=== PATIENT | male | born 1980 | race African-American/Black ===

== ENCOUNTER 2018-04-07 05:14 | Emergency (ER) | payer OTHER ==
[2018-04-07] MEDS ORDERED: Adacel (T-DAP) 0.5 ML SYRINGE ONE (05:35)
[2018-04-07] MEDS ORDERED: Ibuprofen 800 MG TAB ONE (05:40)
[2018-04-07] MEDS ORDERED: Rabies Vaccine Human 2.5 UNITS VIAL IM ONE (06:00)
== END 2018-04-07 06:50 | disposition home or self-care (01) ==
LOC: ERS 05:14
DX: S61.451A Open bite of right hand, initial encounter (principal); S61.411A Laceration without foreign body of right hand, initial encounter; S61.431A Puncture wound without foreign body of right hand, initial encounter; I10 Essential (primary) hypertension; F17.210 Nicotine dependence, cigarettes, uncomplicated; Z23 Encounter for immunization; W54.0XXA Bitten by dog, initial encounter
CPT/HCPCS: 90375; 90471; 90472; 90675; 90715; 96372

== ENCOUNTER 2018-10-12 13:11 | Outpatient (CLI) | payer OTHER ==
--- NOTE | 2018-10-12 14:05 | RAD ---
EXAM: RIGHT HIP TWO VIEWS: 10/12/18 HISTORY: Right hip pain. COMPARISON: 05/17/13. FINDINGS: Stable internal fixation of the right hip and femur. 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 No acute fracture or dislocation. IMPRESSION: Stable appearing right hip with extensive internal fixation changes extending into the distal femoral shaft. Arthrosis and degenerative change. No acute fracture or other significant change from prior s tudy. POS: OFF
== END 2018-10-12 13:12 | disposition home or self-care (01) ==
LOC: RAD-FRANK 13:11
PROVIDERS: ATTEND Internal Medicine
DX: M25.551 Pain in right hip (principal); M16.11 Unilateral primary osteoarthritis, right hip; Z98.890 Other specified postprocedural states

== ENCOUNTER 2019-02-28 08:59 | Emergency (ER) | payer OTHER ==
[2019-02-28] MEDS ORDERED: Ketorolac Tromethamine 30 MG/ML VIAL ONE (09:23)
== END 2019-02-28 09:38 | disposition home or self-care (01) ==
LOC: ERS 08:59
DX: M25.511 Pain in right shoulder (principal); I10 Essential (primary) hypertension; F17.210 Nicotine dependence, cigarettes, uncomplicated
CPT/HCPCS: J1885

== ENCOUNTER 2019-06-04 22:36 | Emergency (ER) | payer OTHER ==
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
[2019-06-04 23:59] LABS: #Lymphocytes 0.6 thou/uL (1.20-3.40); #Monocytes 0.5 thou/uL (0.11-0.59); #Neutrophils 10.5 thou/uL (1.40-6.50); %Basophils 0.3 % (0.0-1.0); %Eosinophils 0.2 % (0.0-10.0); %Lymphocytes 5.2 % (21.0-51.0); %Monocytes 3.9 % (0.0-10.0); %Neutrophils 90.5 % (42.0-75.0); Hemoglobin 14.9 g/dL (14.0-18.0); Mean Corpuscular HGB CONC 33.8 g/dL (32.0-36.0); Mean Corpuscular Hemoglobin 34.1 pg (27.0-31.0); Mean Platelet Volume 8.3 fL (7.4-10.4); Platelet Count 140 thou/uL (130-400); RBC Distribution Width 13.2 % (11.5-14.5); Red Blood Cell (RBC) Count 4.37 mill/uL (4.70-6.10); White Blood Cell (WBC) Count 11.6 thou/uL (4.8-10.8)
[2019-06-05 00:50] LABS: Acetaminophen Less than 6.0 mcg/mL (10.0-30.0); Alcohol Less than 10 mg/dL (Less than 10); CK (CPK) 678 U/L (30-200); Salicylate Less than 8.0 mg/dL (15.0-30.0)
[2019-06-05 00:53] LABS: ALT (SGPT) 93 U/L (8-55); AST (SGOT) 85 U/L (5-34); Albumin 4.8 g/dL (3.5-5.0); Alkaline Phosphatase 101 U/L (40-110); Anion Gap 22 mmol/L (10-20); BUN (Urea Nitrogen) 14 mg/dL (8.9-20.6); Bilirubin, Total 0.9 mg/dL (0.2-1.2); Calc. Creatinine Clearance 0 mL/min (70-130); Calcium 10.4 mg/dL (7.8-10.44); Carbon Dioxide 22 mmol/L (22-29); Chloride 98 mmol/L (98-107); Estimated GFR-MDRD Greater than 90; Globulin 4.2 g/dL (2.4-3.5); Glucose 129 mg/dL (70-105); Potassium 4.2 mmol/L (3.5-5.1); Sodium 138 mmol/L (136-145)
[2019-06-05] MEDS ORDERED: Ketorolac Tromethamine 30 MG/ML VIAL ONE (04:24)
[2019-06-05] MEDS ORDERED: Ondansetron PF 4 MG/2 ML Vial ONE (04:24)
== END 2019-06-05 04:35 | disposition home or self-care (01) ==
LOC: ERS 22:36
DX: R56.9 Unspecified convulsions (principal); F17.210 Nicotine dependence, cigarettes, uncomplicated; I10 Essential (primary) hypertension
CPT/HCPCS: 36415; 70450; 80053; 80307; 82550; 84484; 85025; 93005; 96361; 96374; 96375; J1885; J2405

== ENCOUNTER 2019-08-28 16:59 | Emergency (ER) | payer OTHER ==
[2019-08-28 17:30] LABS: #Lymphocytes 1.8 thou/uL (1.20-3.40); #Monocytes 0.7 thou/uL (0.11-0.59); #Neutrophils 5.7 thou/uL (1.40-6.50); %Basophils 0.4 % (0.0-1.0); %Eosinophils 0.1 % (0.0-10.0); %Lymphocytes 21.9 % (21.0-51.0); %Neutrophils 69.6 % (42.0-75.0); Hemoglobin 14.4 g/dL (14.0-18.0); Mean Corpuscular HGB CONC 33.2 g/dL (32.0-36.0); Mean Corpuscular Hemoglobin 34.1 pg (27.0-31.0); Mean Platelet Volume 8.2 fL (7.4-10.4); Platelet Count 184 thou/uL (130-400); RBC Distribution Width 13.1 % (11.5-14.5); Red Blood Cell (RBC) Count 4.22 mill/uL (4.70-6.10); White Blood Cell (WBC) Count 8.1 thou/uL (4.8-10.8)
[2019-08-28] MEDS ORDERED: chlordiazePOXIDE HCl 25 MG CAP ONE (17:50)
[2019-08-28 17:51] LABS: ALT (SGPT) 105 U/L (8-55); AST (SGOT) 104 U/L (5-34); Albumin 4.5 g/dL (3.5-5.0); Alkaline Phosphatase 111 U/L (40-110); Anion Gap 19 mmol/L (10-20); BUN (Urea Nitrogen) 11 mg/dL (8.9-20.6); Bilirubin, Total 0.8 mg/dL (0.2-1.2); Calc. Creatinine Clearance 0 mL/min (70-130); Calcium 10.1 mg/dL (7.8-10.44); Carbon Dioxide 22 mmol/L (22-29); Chloride 99 mmol/L (98-107); Estimated GFR-MDRD Greater than 90; Globulin 3.8 g/dL (2.4-3.5); Glucose 152 mg/dL (70-105); Potassium 3.7 mmol/L (3.5-5.1); Protein, Total 8.3 g/dL (6.0-8.3); Sodium 136 mmol/L (136-145)
[2019-08-28] MEDS ORDERED: Ondansetron PF 4 MG/2 ML Vial ONE (18:01)
--- NOTE | 2019-08-28 19:39 | RAD ---
THREE VIEWS RIGHT SHOULDER: Indication: History of right shoulder pain after seizures FINDINGS: There is a hatchet shaped deformity involving the posterior superior humeral head consistent with a H ill-Sachs deformity. The glenohumeral joint is well aligned. Visualized distal clavicle is intact. Vi sualized right lung is clear. IMPRESSION: Hill-Sachs type deformity involving the posterior superior humeral head. There may be a comminuted fr acture component involving the anterior right greater tuberosity. Glenohumeral joint alignment is wit hin normal limits. POS: BH
--- NOTE | 2019-09-02 15:19 | EKG ---
Test Reason : Blood Pressure : / mmHG Vent. Rate : 071 BPM Atrial Rate : 071 BPM P-R Int : 148 ms QRS Dur : 084 ms QT Int : 424 ms P-R-T Axes : 071 050 031 degrees QTc Int : 460 ms Normal sinus rhythm with sinus arrhythmia Nonspecific T wave abnormality Prolonged QT Abnormal ECG Confirmed by ЮЛИЯ BRYANT DO ([id number]), mapping editor KESHAWN SEPULVEDA ([id number]) on 09/02/2019 3:18:57 PM Referred By: Confirmed By:ЮЛИЯ BRYANT DO
== END 2019-08-28 20:45 | disposition home or self-care (01) ==
LOC: ERS 16:59
DX: G40.509 Epileptic seizures related to external causes, not intractable, without status epilepticus (principal); F10.239 Alcohol dependence with withdrawal, unspecified; S42.254A Nondisplaced fracture of greater tuberosity of right humerus, initial encounter for closed fracture; I10 Essential (primary) hypertension; F17.210 Nicotine dependence, cigarettes, uncomplicated; X58.XXXA Exposure to other specified factors, initial encounter
CPT/HCPCS: 36415; 80053; 85025; 93005; 96374; J2405

== ENCOUNTER 2019-10-27 16:24 | Inpatient (IN) | payer OTHER ==
[2019-10-27] MEDS ORDERED: Ketamine 50 MG/ML (10ML VIAL) ONE (16:48)
[2019-10-27] MEDS ORDERED: PROPOFOL 20 ML ONE (16:49)
[2019-10-27] MEDS ORDERED: Ondansetron PF 4 MG/2 ML Vial ONE (17:05)
[2019-10-27] MEDS ORDERED: Ondansetron PF 4 MG/2 ML Vial IVP PRN (17:54)
[2019-10-27] MEDS ORDERED: Morphine 2 MG/ML VIAL SLOW IVP PRN (17:54)
[2019-10-27] MEDS ORDERED: Dextrose 5% in Water 1,000 ML IV PRN (17:54)
[2019-10-27] MEDS ORDERED: Dextrose 50% Abboject 50 ML SYRINGE SLOW IVP PRN (17:54)
[2019-10-27] MEDS ORDERED: HumaLOG 300 UNITS/3 ML VIAL SC PRN (17:54)
[2019-10-27] MEDS ORDERED: Ondansetron ODT 4 MG TAB PO PRN (17:54)
[2019-10-27] MEDS ORDERED: Acetaminophen 500 MG TAB PO SCH (18:00)
--- NOTE | 2019-10-27 18:25 | RAD ---
EXAM: LEFT SHOULDER TWO VIEWS: 10/27/19 HISTORY: Post reduction. COMPARISON: Earlier 10/27/19 study. FINDINGS: The previously noted glenohumeral joint has been relocated. Evidence for probable Hill-Sachs osteocho ndral impaction injury. IMPRESSION: Relocation of the glenohumeral joint. POS: RRE
[2019-10-27 19:00] LABS: ALT (SGPT) 63 U/L (8-55); AST (SGOT) 68 U/L (5-34); Alkaline Phosphatase 93 U/L (40-110); Anion Gap 14 mmol/L (10-20); BUN (Urea Nitrogen) 9 mg/dL (8.9-20.6); Bilirubin, Total 0.4 mg/dL (0.2-1.2); Calc. Creatinine Clearance 0 mL/min (70-130); Calcium 8.9 mg/dL (7.8-10.44); Carbon Dioxide 23 mmol/L (22-29); Chloride 99 mmol/L (98-107); Estimated GFR-MDRD Greater than 90; Globulin 3.8 g/dL (2.4-3.5); Glucose 125 mg/dL (70-105); Potassium 3.8 mmol/L (3.5-5.1); Protein, Total 7.8 g/dL (6.0-8.3); Sodium 132 mmol/L (136-145)
[2019-10-27 19:01] LABS: #Lymphocytes 0.8 thou/uL (1.20-3.40); #Monocytes 0.5 thou/uL (0.11-0.59); #Neutrophils 13.3 thou/uL (1.40-6.50); %Basophils 0.3 % (0.0-1.0); %Eosinophils 0.2 % (0.0-10.0); %Lymphocytes 5.5 % (21.0-51.0); %Monocytes 3.7 % (0.0-10.0); %Neutrophils 90.4 % (42.0-75.0); Hemoglobin 13.5 g/dL (14.0-18.0); Mean Corpuscular HGB CONC 34.6 g/dL (32.0-36.0); Mean Corpuscular Hemoglobin 34.7 pg (27.0-31.0); Mean Platelet Volume 9.2 fL (7.4-10.4); Platelet Count 169 thou/uL (130-400); RBC Distribution Width 12.7 % (11.5-14.5); White Blood Cell (WBC) Count 14.7 thou/uL (4.8-10.8)
[2019-10-27 19:03] LABS: Prothrombin Time 13.4 sec (12.0-14.7)
[2019-10-27 19:04] LABS: PTT 30.2 sec (22.9-36.1)
[2019-10-27] MEDS ORDERED: Fentanyl 100 MCG/2 ML VIAL ONE (19:36)
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
[2019-10-27] MEDS ORDERED: Cyclobenzaprine 10 MG TAB PO PRN (19:57)
[2019-10-27] MEDS ORDERED: Ketorolac Tromethamine 30 MG/ML VIAL IVP SCH (20:00)
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
[2019-10-27 22:36] VITALS: BMI 26.4
[2019-10-27] MEDS: Sodium Chloride 0.9% 1,000 ML IV SCH (23:04)
[2019-10-27] MEDS: Ibuprofen 600 MG TAB PO SCH (23:05)
[2019-10-27] MEDS: Senokot S 8.6-50 MG TAB PO SCH (23:06)
[2019-10-27] MEDS: Gabapentin 300 MG CAP PO SCH (23:07)
[2019-10-27] MEDS: levETIRAcetam 500 MG TAB PO SCH (23:08)
[2019-10-27] MEDS: Oxazepam 10 MG CAP PO SCH (23:52)
[2019-10-27] MEDS: Acetaminophen 325 MG TAB PO SCH (23:53)
[2019-10-28] MEDS: Ibuprofen 600 MG TAB PO SCH ×2 (05:52→13:40)
[2019-10-28] MEDS: Acetaminophen 325 MG TAB PO SCH ×3 (05:52→18:36)
[2019-10-28] MEDS: Folic Acid 1 MG TAB PO SCH (09:14)
[2019-10-28] MEDS: Thiamine 100 MG TAB PO SCH (09:14)
[2019-10-28] MEDS: Senokot S 8.6-50 MG TAB PO SCH ×2 (09:14→20:10)
[2019-10-28] MEDS: Polyethylene Glycol 3350 17 GM Packet PO SCH (09:14)
[2019-10-28] MEDS: levETIRAcetam 500 MG TAB PO SCH ×2 (09:15→20:10)
[2019-10-28] MEDS: Sodium Chloride 0.9% 1,000 ML IV SCH (09:15)
[2019-10-28] MEDS: Gabapentin 300 MG CAP PO SCH ×2 (09:15→20:10)
[2019-10-28] MEDS: Acetaminophen/Codeine 30-300mg Tablet PO PRN (09:18)
[2019-10-28] MEDS: Oxazepam 10 MG CAP PO SCH ×2 (09:29→20:10)
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
[2019-10-29] MEDS: Ibuprofen 600 MG TAB PO SCH ×3 (01:59→14:46)
[2019-10-29] MEDS: Acetaminophen 325 MG TAB PO SCH ×3 (02:00→11:25)
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
[2019-10-29] MEDS: Acetaminophen/Codeine 30-300mg Tablet PO PRN (09:30)
[2019-10-29] MEDS: Polyethylene Glycol 3350 17 GM Packet PO SCH (09:30)
[2019-10-29] MEDS: Gabapentin 300 MG CAP PO SCH (09:31)
[2019-10-29] MEDS: Oxazepam 10 MG CAP PO SCH (09:31)
[2019-10-29] MEDS: Senokot S 8.6-50 MG TAB PO SCH (09:31)
[2019-10-29] MEDS: levETIRAcetam 500 MG TAB PO SCH (09:31)
[2019-10-29] MEDS: Thiamine 100 MG TAB PO SCH (09:31)
[2019-10-29] MEDS: Folic Acid 1 MG TAB PO SCH (09:31)
[2019-10-29 15:52] VITALS: BP 139/99; TEMP 98.4
== END 2019-10-29 17:00 | disposition home or self-care (01) | DRG 552 ==
LOC: ERS 16:24 → 2SE 19:51
PROVIDERS: ADMIT Surgery; ATTEND Surgery
PROC: 0RSKXZZ Reposition Left Shoulder Joint, External Approach (ICD-10-PCS; principal; 2019-10-27)
DX: S32.011A Stable burst fracture of first lumbar vertebra, initial encounter for closed fracture (principal); S43.005A Unspecified dislocation of left shoulder joint, initial encounter; S32.021A Stable burst fracture of second lumbar vertebra, initial encounter for closed fracture; I10 Essential (primary) hypertension; G40.909 Epilepsy, unspecified, not intractable, without status epilepticus; F17.210 Nicotine dependence, cigarettes, uncomplicated; F10.10 Alcohol abuse, uncomplicated; V48.0XXA Car driver injured in noncollision transport accident in nontraffic accident, initial encounter; Y92.481 Parking lot as the place of occurrence of the external cause; Z91.19 Patient's noncompliance with other medical treatment and regimen
CPT/HCPCS: 36415; 36416; 80053; 85025; 85610; 85730; 86850; 86900; 86901; G0390; J1885; J1953; J2405; J2704; J3010

== ENCOUNTER 2019-11-17 09:18 | Outpatient (CLI) | payer OTHER ==
--- NOTE | 2019-11-17 10:02 | RAD ---
Exam: 2 views lumbar spine COMPARISON: 10/27/2019 FINDINGS: Redemonstration of 5 lumbar type vertebra. Visualized sacrum and bony pelvis are intact There is mild progressive loss of vertebral body height at T12 and L1 with progression of sclerosis. Stable endplate deformity along the superior L2 level. Preserved disc space heights IMPRESSION: Progression of loss of vertebral body height at T12 and L1. Stable mild superior endplate irregularity at L2.
== END 2019-11-17 09:19 | disposition home or self-care (01) ==
LOC: BICRAD 09:18
PROVIDERS: ATTEND Surgery
DX: S32.001A Stable burst fracture of unspecified lumbar vertebra, initial encounter for closed fracture (principal)
CPT/HCPCS: 72100

== ENCOUNTER 2020-01-01 22:44 | Emergency (ER) | payer OTHER ==
[2020-01-01] MEDS ORDERED: Ketorolac Tromethamine 30 MG/ML VIAL ONE (23:15)
--- NOTE | 2020-01-01 23:20 | RAD ---
Left shoulder 3 views: 01/01/2020 COMPARISON: 10/27/2019 HISTORY: Pain with decreased range of motion FINDINGS: The scapular Y view demonstrates no evidence for dislocation. No widening of the acromiocla vicular or coracoclavicular interspace. No displaced fracture. IMPRESSION: No acute fracture or dislocation seen.
== END 2020-01-01 23:25 | disposition home or self-care (01) ==
LOC: ERS 22:44
DX: S46.912A Strain of unspecified muscle, fascia and tendon at shoulder and upper arm level, left arm, initial encounter (principal); I10 Essential (primary) hypertension; F17.210 Nicotine dependence, cigarettes, uncomplicated; W19.XXXA Unspecified fall, initial encounter
CPT/HCPCS: 96372; J1885

== ENCOUNTER 2021-12-03 09:03 | Emergency (ER) | payer OTHER ==
[2021-12-03] MEDS ORDERED: Ondansetron ODT 4 MG TAB ONE (09:41)
[2021-12-03] MEDS ORDERED: Ketorolac Tromethamine 30 MG/ML VIAL ONE (09:41)
[2021-12-03] MEDS ORDERED: Bicillin LA 2.4 MILL.UNITS/4 ML SYRINGE IM SCH (10:00)
[2021-12-03] MEDS ORDERED: Bicillin LA 2.4 MILL.UNITS/4 ML SYRINGE ONE (10:15)
== END 2021-12-03 10:28 | disposition home or self-care (01) ==
LOC: ERS 09:03
DX: R11.2 Nausea with vomiting, unspecified (principal); A53.9 Syphilis, unspecified; K02.9 Dental caries, unspecified; I10 Essential (primary) hypertension; F17.210 Nicotine dependence, cigarettes, uncomplicated
CPT/HCPCS: 94760; 96372; J0561; J1885; Q0162

== ENCOUNTER 2022-12-29 03:16 | Emergency (ER) | payer OTHER ==
[2022-12-29] MEDS ORDERED: Boostrix 0.5 ML (Tdap) VIAL (>/=7 yrs of age) ONE (03:51)
== END 2022-12-29 04:20 | disposition home or self-care (01) ==
LOC: ERS 03:16
DX: S50.01XA Contusion of right elbow, initial encounter (principal); S51.812A Laceration without foreign body of left forearm, initial encounter; I10 Essential (primary) hypertension; F17.210 Nicotine dependence, cigarettes, uncomplicated; Z23 Encounter for immunization; V89.2XXA Person injured in unspecified motor-vehicle accident, traffic, initial encounter
CPT/HCPCS: 12001; 90471; 90715

== ENCOUNTER 2024-01-13 14:33 | Emergency (ER) | payer OTHER ==
[2024-01-13] MEDS ORDERED: levETIRAcetam 500 MG (5 mL) VIAL ONE (14:55)
== END 2024-01-13 15:23 ==
LOC: ERS 14:33 → EEVIPCON 14:33 → ERS 15:23
DX: G40.909 Epilepsy, unspecified, not intractable, without status epilepticus (principal); R29.700 NIHSS score 0; I10 Essential (primary) hypertension; F17.210 Nicotine dependence, cigarettes, uncomplicated; Z79.899 Other long term (current) drug therapy
CPT/HCPCS: 95812; 96374; J1953